=== PATIENT | female | born 1995 | race Caucasian/White ===

== ENCOUNTER 2016-08-23 10:25 | Emergency (ER) | payer OTHER ==
[~2016-08-23] VITALS: Ht 158.8 cm; Wt 71.7 kg
[2016-08-23 10:40] VITALS: BP 121/69
--- NOTE | 2016-08-23 11:01 | NUR ---
Pt taken to bed 7.
--- NOTE | 2016-08-23 11:16 | NUR ---
Patient being evaluated by Dr. White at bedside.
--- NOTE | 2016-08-23 11:18 | NUR ---
21/F c/o left eyelid pain, itching for the past 3 days. Sclera white, no drainage noted. Conjunctiva pink. Pt wears glasses. Denies changes in vision. AOX4, ambulatory with steady gait. Pt noted with a sling to right arm that patient states "I broke my arm." VSS. No distress noted.
[2016-08-23 11:58] VITALS: BP 121/69
--- NOTE | 2016-08-23 11:59 | NUR ---
Patient discharged with v/s stable. Written and verbal after care instructions given and explained. Patient alert, oriented and verbalized understanding of instructions. Ambulatory with steady gait. All questions addressed prior to discharge. ID band removed. Patient advised to follow up with PMD. Rx of ATARAX, ERYTHROMYCIN EYE OINTMENT, AND TYLENOL given. Patient educated on indication of medication including possible reaction and side effects. Opportunity to ask questions provided and answered.
== END 2016-08-23 11:59 | disposition home or self-care (01) ==
LOC: MED 10:25
DX: H01.004 Unspecified blepharitis left upper eyelid (principal)
CPT/HCPCS: 99283